=== PATIENT | male | born 1995 | race American Indian/Alaskan Native ===

== ENCOUNTER 2019-01-13 23:41 | Emergency (ER) | payer OTHER ==
--- NOTE | 2019-01-13 23:50 | EDM.PDOC ---
ED HPI GENERAL MEDICAL PROBLEM - General Chief Complaint: General Stated Complaint: OVER ALL CHECK UP, JUST GOT BACK FROM [place] Time Seen by Provider: 01/13/19 23:50 Source of Information: Reports: Patient History Limitations: Reports: No Limitations - History of Present Illness INITIAL COMMENTS - FREE TEXT/NARRATIVE: just got back from [place] has fever cough - Related Data Allergies Allergy/AdvReac Type Severity Reaction Status Date / Time No Known Allergies Allergy Verified 03/09/18 21:13 Home Meds: Home Meds . [No Known Home Meds] 02/02/14 [History] Past Medical History - Past Health History Medical/Surgical History: Denies Medical/Surgical History - Past Surgical History Other HEENT Surgeries/Procedures: Shushan teeth both lower ED ROS GENERAL - Review of Systems Review Of Systems: ROS reveals no pertinent complaints other than HPI. ED EXAM, GENERAL - Physical Exam Exam: See Below Exam Limited By: No Limitations General Appearance: Alert, WD/WN, No Apparent Distress, Anxious Course - Vital Signs Last Recorded V/S: Last Vital Signs Temp 36.8 C 01/13/19 23:55 Pulse 68 01/13/19 23:55 Resp 20 01/13/19 23:55 BP 150/86 H 01/13/19 23:55 Pulse Ox 99 01/13/19 23:55 - Orders/Labs/Meds Orders: Active Orders 24 hr Category Date Time Status CULTURE STREP A CONFIRMATION [RM] Stat Lab 01/13/19 23:50 Results STREP SCRN A RAPID W CULT CONF [RM] Stat Lab 01/13/19 23:50 Results Labs: Laboratory Tests 01/14/19 01/14/19 01/14/19 Range/Units 00:01 00:01 00:01 WBC 7.2 (5.0-10.0) 10^3/uL RBC 5.39 (4.6-6.2) 10^6/uL Hgb 15.4 (14.0-18.0) g/dL Hct 44.5 (40.0-54.0) % MCV 82.6 (80-100) fL MCH 28.6 (27.0-34.0) pg MCHC 34.6 (33.0-35.0) g/dL Plt Count 159 (150-450) 10^3/uL Neut % (Auto) 56.1 (42.2-75.2) % Lymph % (Auto) 33.0 (20.5-50.1) % Sandoval % (Auto) 8.7 H (2-8) % Eos % (Auto) 1.8 (1.0-3.0) % Baso % (Auto) 0.4 (0.0-1.0) % Sodium 139 (135-145) mmol/L Potassium 3.5 L (3.6-5.0) mmol/L Chloride 102 (101-111) mmol/L Carbon Dioxide 29.0 (21.0-31.0) mmol/L Anion Gap 11.5 BUN 11 (7-18) mg/dL Creatinine 0.9 (0.6-1.3) mg/dL Est Cr Clr Drug Dosing 137.12 mL/min Estimated GFR (MDRD) > 60 BUN/Creatinine Ratio 12.22 Glucose 111 H (74-105) mg/dL Lactic Acid 1.2 (0.5-2.2) mmol/L Calcium 9.5 (8.4-10.2) mg/dl Total Bilirubin 0.6 (0.2-1.0) mg/dL AST 27 (10-42) IU/L ALT 28 (10-60) IU/L Alkaline Phosphatase 80 (42-121) IU/L Total Protein 7.9 (6.7-8.2) g/dl Albumin 4.5 (3.2-5.5) g/dl Globulin 3.4 Albumin/Globulin Ratio 1.32 - Re-Assessments/Exams Free Text/Narrative Re-Assessment/Exam: 01/14/19 00:34 results discussed with pt who still feels ok and prefer to use home remedy vs ABX Departure - Departure Time of Disposition: 00:35 Disposition: Home, Self-Care 01 Condition: Good Clinical Impression: Flu syndrome - Discharge Information Forms: ED Department Discharge Additional Instructions: 1) rest as much as possible 2) stay warm and drink lots of warm liquids 3) may take tylenol or motrin for discomfort 4) recheck as needed - My Orders Last 24 Hours: My Active Orders 01/13/19 23:50 CULTURE STREP A CONFIRMATION [RM] Stat STREP SCRN A RAPID W CULT CONF [RM] Stat - Assessment/Plan Last 24 Hours: My Active Orders 01/13/19 23:50 CULTURE STREP A CONFIRMATION [RM] Stat STREP SCRN A RAPID W CULT CONF [RM] Stat
[2019-01-13 23:58] VITALS: BP 150/86; PULSE 68
[2019-01-14 00:25] LABS: ANION GAP 11.5; CHLORIDE,CL 102 mmol/L (101-111); SODIUM,NA 139 mmol/L (135-145)
== END 2019-01-14 00:42 | disposition home or self-care (01) ==
LOC: DL.ED 23:41
DX: J11.1 Influenza due to unidentified influenza virus with other respiratory manifestations (principal)
CPT/HCPCS: 36415; 71046; 80053; 83605; 85025; 87081; 87430; 87804; 99283-25